=== PATIENT | male | born 1935 | race Caucasian/White ===

== ENCOUNTER 2016-07-26 14:24 | Inpatient (IN) | payer BC ==
--- NOTE | ~2016-07-26 | DS ---
Discharge Summary [id number] [place]. [address] NAME: SHAHZAD MARTINEZ : 39 STATUS : DIS IN PAT#: [id number] AGE: 80 ADM/REG DATE : 07/26/16 MR#: [id number] REPORT SERV DATE: 08/01/16 DICTATED BY: DATE: REPORT STATUS : Draft TRANSCRIBED BY: MODL DATE: 07/31/16 ADMISSION DATE: 07/26/2016 DISCHARGE DATE: 07/31/2016 DISCHARGE DIAGNOSES: 1. Febrile neutropenia, resolved. 2. Recent urinary retention. 3. Pancytopenia. 4. Chronic systolic congestive heart failure. 5. Metastatic prostate cancer. 6. Anorexia. 7. Diarrhea. 8. Weakness/balance issues. 9. Type 2 diabetes. CONSULTATIONS: Dr. Desmond Rucker, [facility]. PERTINENT TESTS AND PROCEDURES: 1. Chest x-ray, 07/26/2016, impression: Mild bibasilar atelectasis. Otherwise, no acute cardiac cardiopulmonary abnormality identified. AICD device in stable position. 2. Blood cultures x2 sites obtained, 07/26/2016, final result, no growth at four days. 3. Stool study, 07/28/2016, C. diff negative. 4. Urinalysis, 07/26/2016, result negative. CHIEF COMPLAINT: Weakness and fever at home. HOSPITAL COURSE: Please refer to history and physical dated 07/26/[address] Lloyd Mosley for complete details of the patient's initial presentation upon admission and health history. Briefly, the patient is a 80-year-old male who is under the outpatient care of Dr. Stapleton at [facility] for management of metastatic prostate cancer. The patient presented to the emergency department on 07/26/2016 with complaints of weakness and fever of 102.4 at home. Prior to admission, the patient received chemotherapy on 07/19/2016 and a Spicer catheter placed for acute urinary retention on 07/21/2016. The patient was admitted for further evaluation and treatment of febrile neutropenia. 1. Febrile neutropenia. Upon admission, the patient's white count was reported to be 0.4 with ANC of 110. Temperature maximum during this admission was 101 degrees Fahrenheit on 07/27/2016. The patient has remained afebrile since that time. Workup to rule out infection included chest x-ray, blood cultures x2 sites, urinalysis, and lab work. No clear source of infection was identified during this admission. The patient was initially placed on cefepime. Antibiotic was discontinued on 07/29/2016 with no additional indication for extended antibiotic therapy secondary to improved counts and fever resolved. Discharge Summary [facility] [address] [place]. [address] NAME: SHAHZAD MARTINEZ : 39 STATUS : DIS IN PAT#: [id number] AGE: 80 ADM/REG DATE : 07/26/16 MR#: [id number] REPORT SERV DATE: 08/01/16 DICTATED BY: DATE: REPORT STATUS : Draft TRANSCRIBED BY: MODL DATE: 07/31/16 2. Recent urinary retention. The patient had Spicer catheter placed outpatient by Dr. Hernandez on 07/21/2016. The patient returned to Urology office on 07/25/2016 for trial of voiding for which he failed. Spicer catheter was changed at that time, and the patient was instructed to continue Spicer catheter until next attempted trial of voiding. Spicer catheter has remained in place throughout this admission. Urine output over the past 24 hours has been approximately 2425 mL. The patient will follow up with Dr. Spicer once he is discharged from [facility] facility. 3. Pancytopenia. This is secondary to chemotherapy to treat metastatic prostate cancer. The patient's white blood cell count is reported to be 20.9 today, status post Neulasta within the past several days following chemotherapy. Hemoglobin and hematocrit are stable and platelets have increased to 198. No transfusions are indicated. 4. Chronic systolic congestive heart failure, status post pacer/defibrillator placement. The patient's ejection fraction is 30%. The patient was to follow up with Dr. Marcelo at [facility] this past Friday, however, he missed the appointment due to this admission. The patient was extremely concerned regarding Steri-Strips placed over left chest wall surgical site. The patient's daughter expressed concern for her understanding that Steri-Strips were to have been removed 07/26/2016 during this outpatient visit. It was explained that Steri-Strips remain in place and wear off at time. However, due to daughters concern regarding the patient going to a [facility] facility with Steri-Strips in place, call was placed to [facility]. Dr. Rafael Landaverde returned call and verified that Steri-Strips should in fact remain in place until they wear off in time. The patient was educated to leave Steri-Strips in place and avoid pulling them off as they loosen up. The patient will follow up with Dr. Marcelo once he discharges home from [facility] facility. 5. Metastatic prostate cancer. The patient is followed by Dr. Stapleton at [facility]. Last chemotherapy was 07/19/2016. The patient will be re-evaluated by Oncology once he is discharged from [facility] facility. All treatment plans are on hold until the patient can be reassessed for improvement in performance status. 6. Anorexia. This is secondary to disease process and treatment. The patient was recently started on Marinol three times daily before meals and has noticed a slight increase in his oral intake since that time. 7. Weakness/balance issues. The patient has had chronic balance issues since receiving SBRT to [employer] lesions. Weakness has increased significantly since chemotherapy. The patient will go to [facility] facility for rehabilitation in hopes of improving performance status so that treatment may be resumed. 8. Type 2 diabetes mellitus. Continue current insulin regimen. DISCHARGE CONDITION: At the time of discharge, the patient is hemodynamically stable. DISCHARGE DIET: 1800 calorie ADA diet as tolerated. DISCHARGE MEDICATIONS: 1. Allopurinol 300 mg tablet p.o. daily. 2. Aspirin 81 mg tablet p.o. daily. 3. Coreg 3.125 mg tablet p.o. twice daily. 4. Caltrate 600 mg p.o. with lunch and supper. 5. Marinol 2.5 mg tablet p.o. three times daily with meals. Discharge Summary [address] [address] NAME: SHAHZAD MARTINEZ : 39 STATUS : DIS IN PAT#: [id number] AGE: 80 ADM/REG DATE : 07/26/16 MR#: [id number] REPORT SERV DATE: 08/01/16 DICTATED BY: DATE: REPORT STATUS : Draft TRANSCRIBED BY: CINDY DATE: 07/31/16 6. Neurontin 300 mg tablet, take 900 mg p.o. four times daily. 7. Mucinex 600 mg tablet p.o. every 12 hours as needed. 8. NovoLog sliding scale insulin level 2 before meals and h.s. 9. Levemir 14 to 15 units subcu every morning. The patient is currently receiving 10 units daily. 10.Flomax 0.4 mg tablet p.o. daily. 11.Prednisone 5 mg tablet p.o. daily with breakfast and supper. 12.Tylenol 325 mg tab, take 650 mg p.o. every four hours as needed. 13.Lomotil 2.5 mg tablet, take two tablets p.o. every six hours as needed. 14.Docusate sodium 100 mg p.o. twice daily as needed. 15.Imodium 2 mg tablet p.o. every six hours as needed. 16.MD Bolom mouthwash 5 mL every six hours as needed. The patient may vary dose between 5 mL and 10 mL as needed. 17.Zofran 4 mg tablet p.o. every four hours as needed. 18.Chemotherapy, to be resumed per [facility]. DISCHARGE INSTRUCTIONS: 1. Follow up with Dr. Hernandez, Urology, for re-evaluation of Spicer catheter and trial of voiding. 2. Follow up with Dr. Fozia [facility]. 3. Follow up with Dr. Stapleton, at [facility]. 4. The patient's family was educated to call and arrange followup appointment once the patient has returned to home from [facility] facility. If the patient has extended stay at the nursing facility, then the patient will need to attend these followup appointments before returning home. PRIMARY ONCOLOGIST: Dr. Devendra Stapleton, [facility]. PRIMARY CARE PHYSICIAN: Dr. Homar Pope. PRIMARY UROLOGIST: Dr. Hernandez. JWH/MODL BENJAMÍN Denney / [id number] CC: MD Homar Garcia II, M.D.
--- NOTE | ~2016-07-26 | HP ---
History And Physical [address] [place]. [address] NAME: SHAHZAD MARTINEZ : 39 STATUS : ADM IN PAT#: [id number] AGE: 80 ADM/REG DATE : 07/26/16 MR#: [id number] REPORT SERV DATE: 07/26/16 DICTATED BY: VICTOR M MOSLEY DATE: 07/26/16 REPORT STATUS : Draft TRANSCRIBED BY: MODL DATE: 07/26/16 DATE OF ADMISSION: 07/26/2016 CHIEF COMPLAINT: Weakness and fever at home. HISTORY OF PRESENT ILLNESS: This is a 80-year-old male, who got chemotherapy on 07/19/2016, who started having weakness and yesterday when family was out taking him to doctor's appointment, he asked for a wheelchair, which is unusual for him. This morning around 8 a.m., daughter took temperature and it was 102.4. She took it again an hour later, was 102.4 at that time too. She gave him Tylenol at 10:30. He had a Spicer that he has had since 07/21/2016. He did have a voiding trial yesterday with Dr. Hernandez from Urology in the office yesterday which he failed and Spicer was changed at that time. He did have one episode of large amount of loose stool yesterday, but none sent. Otherwise, he complains of a sore throat. Prior to this morning, he had not been febrile, just weak. He has not had significant nausea and eating well. REVIEW OF SYSTEMS: A full review of systems is obtained and is negative with the exception of above HPI. PAST MEDICAL HISTORY: Includes: 1. Metastatic prostate cancer with bone lesions, followed by Dr. Stapleton. 2. Urinary retention with recent Spicer catheter placement. 3. Diabetes mellitus, on insulin. 4. Coronary artery disease and history of stenting, status post recent AICD with ischemic cardiomyopathy with ejection fraction of approximately 30%. 5. Gout. 6. Hypertension. 7. Hyperlipidemia. 8. History of abdominal aortic aneurysm repair. HOME MEDICATIONS: Include Tylenol p.r.n., allopurinol 300 mg daily, aspirin 81 mg daily, calcium with vitamin D, Coreg 3.125 p.o. b.i.d., gabapentin 900 mg four times daily, Combivent inhaler 4 times p.r.n., Levemir 14 to 15 units daily with NovoLog FlexPen, guaifenesin p.r.n., naproxen p.r.n., prednisone 5 mg p.o. b.i.d., Flomax 0.4 at bedtime, and chemotherapy is cabazitaxel. SOCIAL HISTORY: Lives alone, however, his two daughters have been staying with him. He drinks about two beers a day. Denies any history of issues when he does not drink. FAMILY HISTORY: Positive for lung cancer. PHYSICAL EXAMINATION: VITAL SIGNS: Temperature 99.2, blood pressure 104/38, pulse 75, respiratory rate 16, and saturating 95% on room air. GENERAL: This is a well-developed male who is in no acute distress, sitting in the stretcher. He is cooperative and pleasant. History And Physical [address] [address] NAME: SHAHZAD MARTINEZ : 39 STATUS : ADM IN MERGED WITH [facility]#: [id number] AGE: 80 ADM/REG DATE : 07/26/16 MR#: [id number] REPORT SERV DATE: 07/26/16 DICTATED BY: VICTOR M MOSLEY DATE: 07/26/16 REPORT STATUS : Draft TRANSCRIBED BY: CINDY DATE: 07/26/16 HEENT: Extraocular muscles are intact. Sclerae anicteric. Pupils are equal, round, and reactive to light. He has some evidence of mucositis in the back of his throat without obvious evidence of thrush. NECK: Supple. LUNGS: Clear to auscultation bilaterally without any wheezes, rales, or rhonchi. CARDIOVASCULAR: Regular rate and rhythm without any appreciable murmurs. ABDOMEN: Soft, nontender, and nondistended with bowel sounds present. He does have a left flank bruise which is from his previous ICD placement. LOWER EXTREMITIES: Warm and well perfused. No edema. NEUROLOGIC: Cranial nerves 2 through 12 are grossly intact. Face is symmetric. Tongue is midline. LABORATORY DATA: White blood cell count 0.4, hemoglobin 7.9, platelet count of 110. BMP reviewed. Chest x-ray without any infiltrate. UA unremarkable. ASSESSMENT AND PLAN: This is a 80-year-old male undergoing chemotherapy for metastatic prostate cancer, presenting with febrile neutropenia. 1. Febrile neutropenia. The patient was admitted to the hospital. Cultures have been obtained. He will be treated with cefepime empirically and followed out. 2. Metastatic prostate cancer. The patient will be seen by Oncology while in-house. He will have a followup to determine when appropriate next chemotherapy will be. 3. Pancytopenia due to chemotherapy. We will follow counts and transfuse platelets and packed red blood cells as appropriate. 4. Recent urinary retention, status post Spicer placement. We will continue following up of outpatient followup with Dr. Hernandez. 5. Chronic systolic heart failure with ejection fraction of 30%. The patient currently appears compensated and euvolemic. We will give him IV fluids given febrile neutropenia and monitor him for any evidence of volume overload. 6. Code status. Per discussion with the patient, he did not wish to be have chest compressions or to be placed on a ventilator. However, he is willing to do other interventions as he is a limited code. Deep vein thrombosis prophylaxis with enoxaparin. DNK/MODL Victor M Mosley MD / [id number] CC: History And Physical [address] [address] NAME: SHAHZAD MARTINEZ : 39 STATUS : ADM IN MERGED WITH [facility]#: [id number] AGE: 80 ADM/REG DATE : 07/26/16 MR#: [id number] REPORT SERV DATE: 07/26/16 DICTATED BY: VICTOR M MOSLEY DATE: 07/26/16 REPORT STATUS : Draft TRANSCRIBED BY: MODL DATE: 07/26/16 Homar Pope M.D.
[2016-07-26 14:17] LABS: HEMOGLOBIN 7.9 g/dL (13.6-17.8); MEAN CORPUSCULAR HEMOGLOB 29.8 pg (26.0-34.0); MEAN PLATELET VOLUME 11.3 fL (9.2-13.0); PLATELET COUNT 110 10/3/uL (150-400); RBC DISTRIBUTION WIDTH 16.2 % (12.0-16.0); RED CELL COUNT 2.65 10/6/uL (4.7-6.1)
[2016-07-26 14:21] LABS: ER CBC TAT 0 Hrs 11 Mins; HEMATOCRIT 24.8 % (40.0-51.0); MEAN CORPUS HGB CONC 31.9 g/dL (32.0-36.0); MEAN CORPUSCULAR VOLUME 93.6 fL (80-100); WHITE BLOOD CELLS 0.4 10/3/uL (4.5-10.5)
[2016-07-26 14:23] LABS: MANUAL DIFF YES %
[~2016-07-26 14:24] MED LIST: 8 HOUR650 MG PO; ADVIL PO; ALEVE220 MG PO; ASAB PO; CALCIUM + D OTC PO; CALTRA600D PO; CASODEX 50 MG T50 MG PO; CEFT5; CEFT5 PO; CHEMO-THERAPY IV; COMBIVENT RESPIM4 GM INH; COREG3 PO; COREG6 PO; COZ50 PO; DOCETAXEL IV; DSS PO; FISH OIL1200 MG PO; FLOMAX4 PO; FOLIC; FOLIC PO; HALF81 PO; HORMONE INJECTION; IMDUR30 PO; LEVEMFLXPN SC; LEVEMIR SC; LUPRON; METANX PO; MUCINEX600 MG PO; NEULASTA SC; NEUR300 PO; NOVOLOG SC; NOVOPEN SC; OTC SLEEP AID PO; P5 PO; PACERONE200 MG PO; SEA OMEGA PO; T PO; Z-PAK PO; Z300 PO; ZOCOR40 PO; [UNRECOGNIZED DRUG - OTHER] IV
[2016-07-26 14:25] LABS: PARTIAL THROMBO TIME 28.9 SEC (22.5-37.2)
[2016-07-26 14:31] LABS: ALKALINE PHOSPHATASE 155 U/L (45-117); BUN (BLOOD UREA NITROGEN) 17 MG/DL (6-23); CALCIUM, SERUM 7.3 MG/DL (8.5-10.4); CHLORIDE, SERUM 105 MMOL/L (96-112); CO2 (CARBON DIOXIDE) 25 MMOL/L (24-34); CREATININE 0.84 MG/DL (0.70-1.30); GFR AFRICAN AMERICAN 97 ML/MIN (>=60); GFR NON AFRICAN AMERICAN 84 ML/MIN (>=60); GLUCOSE, SERUM 147 MG/DL (60-99); INTERNATIONAL NORMAL RATI 1.2 UNITS (-); POTASSIUM, SERUM 4.3 MMOL/L (3.5-5.3); SGOT(AST) 29 U/L (5-40); SGPT(ALT) 25 U/L (5-65); SODIUM, SERUM 137 MMOL/L (135-148); TOTAL BILIRUBIN 1.3 MG/DL (0-1.2)
[2016-07-26 14:33] LABS: LACTATE 1.5 MMOL/L (0.3-2.4)
[2016-07-26 14:34] LABS: PROTIME (NOT ORD) 14.6 SEC (12.0-14.5)
[2016-07-26 14:39] LABS: BAND NEUTROPHILS 7 %; ER DIFF TAT 0 Hrs 29 Mins; LYMPHOCYTES 67 %; LYMPHOCYTES ABSOLUTE (CALC) 0.27 10/3/uL (0.67-4.30); MONOCYTES 7 %; MONOCYTES ABSOLUTE (CALC) 0.03 10/3/uL (0.21-1.20); NEUTROPHILS ABSOLUTE (CALC) 0.11 10/3/uL (2.02-8.40); PLATELET ESTIMATE SLT DEC (ADEQUATE); SEGMENTED NEUTROPHIL (0) 20 %; TOTAL NUCLEATED CELLS 15
[2016-07-26 14:40] LABS: RBC MORPHOLOGY NORM (NORMAL)
[2016-07-26 15:12] LABS: ASCORBIC ACID (UR NOT ORDER) NEG (NEG); BILIRUBIN, URINE NEGATIVE (NEG); ER URINALYSIS TAT 0 Hrs 26 Mins; KETONE, URINE NEGATIVE (NEG); LEUKOCYTE ESTERASE(NOT OR NEG (NEG); NITRITE (URINE) NEG (NEG); WBC (NOT ORDERED) (RFLEX) 4 (0-5)
[2016-07-27 07:47] LABS: MEAN CORPUS HGB CONC 31.6 g/dL (32.0-36.0); MEAN CORPUSCULAR HEMOGLOB 29.8 pg (26.0-34.0); MEAN CORPUSCULAR VOLUME 94.3 fL (80-100); MEAN PLATELET VOLUME 11.6 fL (9.2-13.0); PLATELET COUNT 95 10/3/uL (150-400); RBC DISTRIBUTION WIDTH 16.3 % (12.0-16.0); RED CELL COUNT 2.28 10/6/uL (4.7-6.1)
[2016-07-27 07:48] LABS: CHLORIDE, SERUM 108 MMOL/L (96-112); CREATININE 0.55 MG/DL (0.70-1.30); GFR AFRICAN AMERICAN 116 ML/MIN (>=60); GFR NON AFRICAN AMERICAN 100 ML/MIN (>=60); GLUCOSE, SERUM 129 MG/DL (60-99); POTASSIUM, SERUM 4.1 MMOL/L (3.5-5.3); SODIUM, SERUM 139 MMOL/L (135-148)
[2016-07-27 07:50] LABS: BUN (BLOOD UREA NITROGEN) 11 MG/DL (6-23); CALCIUM, SERUM 6.7 MG/DL (8.5-10.4); CO2 (CARBON DIOXIDE) 20 MMOL/L (24-34); PHOSPHORUS, SERUM 1.5 MG/DL (2.5-4.5)
[2016-07-27 07:51] LABS: HEMATOCRIT 21.5 % (40.0-51.0); HEMOGLOBIN 6.8 g/dL (13.6-17.8); WHITE BLOOD CELLS 0.8 10/3/uL (4.5-10.5)
[2016-07-27 07:52] LABS: MANUAL DIFF YES %
[2016-07-27 08:26] LABS: BAND NEUTROPHILS 12 %; EOSINOPHILS 2 %; EOSINOPHILS ABSOLUTE (CALC) 0.02 10/3/uL (0.0-0.53); IMMATURE GRANS ABSOLUTE (CALC) 0.03 10/3/uL (0.0-0.11); LYMPHOCYTES 42 %; LYMPHOCYTES ABSOLUTE (CALC) 0.34 10/3/uL (0.67-4.30); METAMYELOCYTES 4 %; MONOCYTES 18 %; MONOCYTES ABSOLUTE (CALC) 0.14 10/3/uL (0.21-1.20); NEUTROPHILS ABSOLUTE (CALC) 0.27 10/3/uL (2.02-8.40); PLATELET ESTIMATE DEC (ADEQUATE); RBC MORPHOLOGY NORM (NORMAL); SEGMENTED NEUTROPHIL (0) 22 %; TOTAL NUCLEATED CELLS 50
[2016-07-28 06:50] LABS: MEAN PLATELET VOLUME 11.3 fL (9.2-13.0); PLATELET COUNT 123 10/3/uL (150-400); RBC DISTRIBUTION WIDTH 16.6 % (12.0-16.0); RED CELL COUNT 2.68 10/6/uL (4.7-6.1)
[2016-07-28 06:51] LABS: HEMATOCRIT 24.5 % (40.0-51.0); HEMOGLOBIN 8.3 g/dL (13.6-17.8); MANUAL DIFF YES %; MEAN CORPUS HGB CONC 33.9 g/dL (32.0-36.0); MEAN CORPUSCULAR VOLUME 91.4 fL (80-100); WHITE BLOOD CELLS 3.3 10/3/uL (4.5-10.5)
[2016-07-28 07:11] LABS: ALBUMIN 2.1 G/DL (3.5-5.0); BUN (BLOOD UREA NITROGEN) 7 MG/DL (6-23); CALCIUM, SERUM 7.2 MG/DL (8.5-10.4); CHLORIDE, SERUM 109 MMOL/L (96-112); CO2 (CARBON DIOXIDE) 20 MMOL/L (24-34); CREATININE 0.45 MG/DL (0.70-1.30); GFR AFRICAN AMERICAN 126 ML/MIN (>=60); GFR NON AFRICAN AMERICAN 108 ML/MIN (>=60); GLUCOSE, SERUM 96 MG/DL (60-99); PHOSPHORUS, SERUM 1.2 MG/DL (2.5-4.5); POTASSIUM, SERUM 3.9 MMOL/L (3.5-5.3); SODIUM, SERUM 139 MMOL/L (135-148)
[2016-07-28 07:29] LABS: BAND NEUTROPHILS 38 %; LYMPHOCYTES 14 %; LYMPHOCYTES ABSOLUTE (CALC) 0.46 10/3/uL (0.67-4.30); METAMYELOCYTES 6 %; MONOCYTES 6 %; NEUTROPHILS ABSOLUTE (CALC) 2.44 10/3/uL (2.02-8.40); SEGMENTED NEUTROPHIL (0) 36 %; TOTAL NUCLEATED CELLS 50
[2016-07-28 07:30] LABS: PLATELET ESTIMATE SLT DEC (ADEQUATE); RBC MORPHOLOGY NORM (NORMAL)
[2016-07-29 06:39] LABS: HEMOGLOBIN 9.1 g/dL (13.6-17.8); MEAN CORPUS HGB CONC 33.5 g/dL (32.0-36.0); MEAN CORPUSCULAR HEMOGLOB 30.6 pg (26.0-34.0); MEAN CORPUSCULAR VOLUME 91.6 fL (80-100); MEAN PLATELET VOLUME 11.1 fL (9.2-13.0); RBC DISTRIBUTION WIDTH 16.3 % (12.0-16.0); RED CELL COUNT 2.97 10/6/uL (4.7-6.1)
[2016-07-29 06:42] LABS: HEMATOCRIT 27.2 % (40.0-51.0); MANUAL DIFF YES %; PLATELET COUNT 164 10/3/uL (150-400)
[2016-07-29 06:48] LABS: BUN (BLOOD UREA NITROGEN) 8 MG/DL (6-23); CALCIUM, SERUM 7.9 MG/DL (8.5-10.4); CHLORIDE, SERUM 107 MMOL/L (96-112); CO2 (CARBON DIOXIDE) 22 MMOL/L (24-34); CREATININE 0.46 MG/DL (0.70-1.30); GFR AFRICAN AMERICAN 124 ML/MIN (>=60); GFR NON AFRICAN AMERICAN 107 ML/MIN (>=60); GLUCOSE, SERUM 102 MG/DL (60-99); SODIUM, SERUM 139 MMOL/L (135-148)
[2016-07-29 06:50] LABS: PHOSPHORUS, SERUM 2.2 MG/DL (2.5-4.5); POTASSIUM, SERUM 4.2 MMOL/L (3.5-5.3)
[2016-07-29 07:13] LABS: BAND NEUTROPHILS 26 %; IMMATURE GRANS ABSOLUTE (CALC) 0.72 10/3/uL (0.0-0.11); LYMPHOCYTES 10 %; METAMYELOCYTES 7 %; MONOCYTES 4 %; MONOCYTES ABSOLUTE (CALC) 0.36 10/3/uL (0.21-1.20); MYELOCYTES 1 %; NEUTROPHILS ABSOLUTE (CALC) 7.02 10/3/uL (2.02-8.40); SEGMENTED NEUTROPHIL (0) 52 %; TOTAL NUCLEATED CELLS 100
[2016-07-29 07:14] LABS: ANISOCYTOSIS 1+ (5-10/OIF) (0-5/OIF); PLATELET ESTIMATE ADQ (ADEQUATE); TOXIC GRANULATION 1+
[2016-07-30 04:17] LABS: HEMATOCRIT 26.1 % (40.0-51.0); HEMOGLOBIN 8.8 g/dL (13.6-17.8); MANUAL DIFF YES %; MEAN CORPUS HGB CONC 33.7 g/dL (32.0-36.0); MEAN CORPUSCULAR HEMOGLOB 30.9 pg (26.0-34.0); MEAN CORPUSCULAR VOLUME 91.6 fL (80-100); MEAN PLATELET VOLUME 11.6 fL (9.2-13.0); PLATELET COUNT 181 10/3/uL (150-400); RBC DISTRIBUTION WIDTH 16.3 % (12.0-16.0); RED CELL COUNT 2.85 10/6/uL (4.7-6.1); WHITE BLOOD CELLS 17.6 10/3/uL (4.5-10.5)
[2016-07-30 04:31] LABS: ALBUMIN 2.3 G/DL (3.5-5.0); DIRECT BILIRUBIN 0.2 MG/DL (0.0-0.4); PHOSPHORUS, SERUM 2.7 MG/DL (2.5-4.5); TOTAL PROTEIN 4.8 G/DL (6.0-8.5)
[2016-07-30 04:33] LABS: INDIRECT BILIRUBIN(NOT ORDER) 0.4 MG/DL (0.1-0.9); TOTAL BILIRUBIN 0.6 MG/DL (0-1.2)
[2016-07-30 05:27] LABS: BAND NEUTROPHILS 24 %; IMMATURE GRANS ABSOLUTE (CALC) 1.58 10/3/uL (0.0-0.11); LYMPHOCYTES 8 %; LYMPHOCYTES ABSOLUTE (CALC) 1.41 10/3/uL (0.67-4.30); METAMYELOCYTES 5 %; MONOCYTES 1 %; MONOCYTES ABSOLUTE (CALC) 0.18 10/3/uL (0.21-1.20); MYELOCYTES 4 %; NEUTROPHILS ABSOLUTE (CALC) 14.43 10/3/uL (2.02-8.40); PATH REVIEW YES; SEGMENTED NEUTROPHIL (0) 58 %; TOTAL NUCLEATED CELLS 100
[2016-07-30 05:28] LABS: PLATELET ESTIMATE ADQ (ADEQUATE)
[2016-07-30 05:29] LABS: GIANT PLATELET OCC; SPHEROCYTES OCC (0-2/OIF)
[2016-07-31 04:23] LABS: HEMATOCRIT 27.5 % (40.0-51.0); MANUAL DIFF YES %; MEAN CORPUS HGB CONC 32.7 g/dL (32.0-36.0); MEAN CORPUSCULAR HEMOGLOB 30.6 pg (26.0-34.0); MEAN CORPUSCULAR VOLUME 93.5 fL (80-100); MEAN PLATELET VOLUME 10.8 fL (9.2-13.0); NUCLEATED RED BLOOD CELLS 0.9 /100WBC (0-0); PLATELET COUNT 198 10/3/uL (150-400); RBC DISTRIBUTION WIDTH 16.2 % (12.0-16.0); RED CELL COUNT 2.94 10/6/uL (4.7-6.1); WHITE BLOOD CELLS 20.9 10/3/uL (4.5-10.5)
[2016-07-31 04:30] LABS: BUN (BLOOD UREA NITROGEN) 9 MG/DL (6-23); CALCIUM, SERUM 8.5 MG/DL (8.5-10.4); CHLORIDE, SERUM 103 MMOL/L (96-112); CREATININE 0.53 MG/DL (0.70-1.30); GFR AFRICAN AMERICAN 117 ML/MIN (>=60); GFR NON AFRICAN AMERICAN 101 ML/MIN (>=60); GLUCOSE, SERUM 108 MG/DL (60-99); SODIUM, SERUM 137 MMOL/L (135-148)
[2016-07-31 04:35] LABS: BAND NEUTROPHILS 20 %; IMMATURE GRANS ABSOLUTE (CALC) 4.39 10/3/uL (0.0-0.11); LYMPHOCYTES 5 %; LYMPHOCYTES ABSOLUTE (CALC) 1.05 10/3/uL (0.67-4.30); METAMYELOCYTES 15 %; MONOCYTES 4 %; MONOCYTES ABSOLUTE (CALC) 0.84 10/3/uL (0.21-1.20); MYELOCYTES 6 %; NEUTROPHILS ABSOLUTE (CALC) 14.63 10/3/uL (2.02-8.40); PLATELET ESTIMATE ADQ (ADEQUATE); RBC MORPHOLOGY NORM (NORMAL); SEGMENTED NEUTROPHIL (0) 50 %; TOTAL NUCLEATED CELLS 100; TOXIC GRANULATION 1+
[2016-07-31 05:00] LABS: CO2 (CARBON DIOXIDE) 28 MMOL/L (24-34); POTASSIUM, SERUM 4.8 MMOL/L (3.5-5.3)
== END 2016-07-31 14:47 | DRG 809 ==
LOC: ER 14:24 → 4EA 17:00
PROVIDERS: Internal Medicine; Nurse Practitioner Family; Physician Assistant
PROC: 30233N1 Transfusion of Nonautologous Red Blood Cells into Peripheral Vein, Percutaneous Approach (ICD-10-PCS; principal; 2016-07-27)
DX: D70.9 Neutropenia, unspecified (principal); I50.22 Chronic systolic (congestive) heart failure; C61 Malignant neoplasm of prostate; D61.810 Antineoplastic chemotherapy induced pancytopenia; R63.0 Anorexia; Z68.27 Body mass index [BMI] 27.0-27.9, adult; E11.9 Type 2 diabetes mellitus without complications
CPT/HCPCS: 36415; 36600; 71020; 80048; 80053; 80069; 80076; 81001; 82330; 82803; 82947; 82962; 83605; 83690; 83735; 84100; 84132; 84295; 85014; 85025; 85610; 85730; 86850; 86900; 86901; 86920; 87040; 87493; 87493-59; 93005; 97110-GP; 97116-GP; 97161-GP; 99285; A9270-GY; J0692; J2405; J3370; P9040